=== PATIENT | female | born 1990 ===

== ENCOUNTER → 2020-08-02 | Day surgery (SDC) | payer OTHER ==
[~2020-08-02] VITALS: Ht 167.6 cm; Wt 59.0 kg
[~2020-08-02] MED LIST: PRENA1 TRUE CO1 EACH
== END | disposition home or self-care (01) ==
LOC: ER 08:28 → CIR.AMB 14:40
PROVIDERS: ATTEND Specialist
DX: O03.4 Incomplete spontaneous abortion without complication (principal); Z20.822 Contact with and (suspected) exposure to COVID-19